=== PATIENT | female | born 1990 ===

== ENCOUNTER 2022-06-21 18:15 | Emergency (ER) | payer MEDICAID, OTHER ==
[~2022-06-21] VITALS: Ht 157.5 cm; Wt 81.8 kg
[2022-06-21] MEDS ORDERED: LIDOCAINE/PF 1% 2 ML VIAL IM ONE (19:00)
[2022-06-21] MEDS ORDERED: CefTRIAXone SODIUM 1 GM/VIAL IM ONE (19:00)
[2022-06-21] MEDS ORDERED: ACETAMINOPHEN 500 MG TABLET PO ONE (19:00)
[2022-06-21] MEDS ORDERED: BACITRACIN 0.9 GM PACKET OINTMENT TP ONE (19:00)
[2022-06-21] MEDS ORDERED: PERTUSS(ACELL),DIPH,TET VAC/PF 0.5 ML SYRINGE IM. ONE (19:45)
[2022-06-21 19:47] LABS: COVID AG,FIA SOURCE NASOPHARYNGEAL
[2022-06-21 19:56] LABS: RAPID GROUP A STREP NEGATIVE (NEGATIVE)
[2022-06-21 20:06] LABS: INFLUENZA TYPE A NEGATIVE FOR TYPE A (NEGATIVE); INFLUENZA TYPE B NEGATIVE FOR TYPE B (NEGATIVE)
[2022-06-21 20:30] VITALS: BP 123/71
== END 2022-06-21 21:47 | disposition home or self-care (01) ==
LOC: EMS 18:19
DX: L03.114 Cellulitis of left upper limb (principal); L03.115 Cellulitis of right lower limb; F17.210 Nicotine dependence, cigarettes, uncomplicated; Z90.49 Acquired absence of other specified parts of digestive tract; Z91.013 Allergy to seafood; Z88.5 Allergy status to narcotic agent; Z20.822 Contact with and (suspected) exposure to COVID-19
CPT/HCPCS: 99284; 87426; 87430; 87804; 90715; 81025; 90471; 96372; J0696; J3490

== ENCOUNTER 2022-07-01 14:09 | Emergency (ER) | payer MEDICAID ==
[~2022-07-01] VITALS: Ht 167.6 cm; Wt 63.6 kg
[2022-07-01 14:11] VITALS: BP 125/80
== END 2022-07-01 16:35 | disposition left against medical advice (07) ==
LOC: EMS 14:13
DX: S91.311A Laceration without foreign body, right foot, initial encounter (principal); Z53.21 Procedure and treatment not carried out due to patient leaving prior to being seen by health care provider; W26.8XXA Contact with other sharp object(s), not elsewhere classified, initial encounter; Y93.89 Activity, other specified; Y92.89 Other specified places as the place of occurrence of the external cause; Y99.8 Other external cause status